=== PATIENT | female | born 1980 | race Caucasian/White ===

== ENCOUNTER 2020-02-12 14:41 | Emergency (ER) | payer OTHER, SELFPAY ==
[2020-02-12 14:55] VITALS: BP 152/75; PULSE 67; RESP 16; TEMP 36.6; O2SAT 100
--- NOTE | 2020-02-12 15:16 | ED.FEMALEGU ---
HPI - Female Genitourinary General Chief complaint: Urogenital-Female Stated complaint: Uti Time Seen by Provider: 02/12/20 15:16 Source: patient and RN notes reviewed Mode of arrival: ambulatory Limitations: no limitations History of Present Illness HPI Narrative: 39-year-old female presents with concern for possible urinary tract infection. Reports 2-day history of urine frequency, urgency, suprapubic pressure, nausea. Reports burning with urination. Reports symptoms started at the onset of menses 3 days ago. She denies fever, flank pain, malaise. MD elicited complaint: UTI Related Data Home Medications Medication Instructions Recorded Confirmed levothyroxine [Synthroid] 200 mcg PO DAILY 02/12/20 02/12/20 meclizine 25 mg PO BID PRN 02/12/20 02/12/20 Allergies Allergy/AdvReac Type Severity Reaction Status Date / Time No Known Allergies Allergy Unknown Verified 02/12/20 15:09 Review of Systems Review of Systems: Narrative: CONSTITUTIONAL: Denies malaise, chills, sweats, or fever. CARDIOVASCULAR: Denies chest pain, palpitations, or edema. RESPIRATORY: Denies dyspnea. GASTROINTESTINAL: Reports suprapubic pressure, nausea. Denies abdominal pain, vomiting, diarrhea, bloody, or mucous stools. GENITOURINARY: Reports dysuria frequency, urgency. Denies hematuria. SKIN: Denies rash or itching. MUSCULOSKELETAL: Denies back pain or myalgia. All systems reviewed & are unremarkable except as noted in HPI and below PMFSH Comments At time of signature, agree with nursing past medical, surgical, social and family history. There is no relevant family history pertinent to the presenting complaint Exam Narrative: Exam Narrative: GENERAL: Well-appearing, well-nourished, and in no acute distress. HEAD: Normocephalic. EYES: PERRLA, conjunctivae clear. NECK: Supple. No lymphadenopathy CHEST: Clear to auscultation. No respiratory distress. HEART: Regular rate and rhythm. No murmur heard. Normal peripheral pulses. ABDOMEN: Soft, nontender upon palpation, nondistended, normal active bowel sounds, no palpable or pulsatile masses, no guarding. No CVA tenderness SKIN: Warm, dry, no rash. NEURO: Alert and oriented x3. PSYCH: Normal mood and affect Course Course Emergency Course: Patient is aware of diagnosis, understands and agrees to treatment plan. Anticipatory guidance given. Patient agrees to follow-up as directed and is aware of reasons to seek care at the emergency department. Portions of this record may have been created with voice recognition software Vital Signs Vital signs: Vital Signs Temperature 98 F 02/12/20 14:55 Pulse Rate 67 02/12/20 14:55 Respiratory Rate 16 02/12/20 14:55 Blood Pressure 152/75 H 02/12/20 14:55 Pulse Oximetry 100 02/12/20 14:55 Temperature 98 F 02/12/20 14:55 Pulse Rate 67 02/12/20 14:55 Respiratory Rate 16 02/12/20 14:55 Blood Pressure 152/75 H 02/12/20 14:55 Pulse Oximetry 100 02/12/20 14:55 Reviewed. Patient has been instructed to follow up with her primary care provider within the next week regarding her elevated blood pressure today. MDM - Female Genitourinary MDM Narrative Medical decision making narrative: Exam findings and UA show no acute concerns or changes; patient is non-toxic appearing and is in no distress. Patient is appropriate for outpatient treatment and follow-up. Differential Diagnosis Differential diagnosis: Likely urinary tract infection and cystitis Lab Data Attestation: I reviewed the patient's lab results. Labs: Urine Glucose Negative Reference Range: Negative Urine Bilirubin Negative Reference Range: Negative Urine Ketone 2+ Reference Range: Negative Urine Specific [employer] 1.015 Reference Range:1.001-1.035 Urine Blood 2+ Reference Range: Negative * * Urine pH
== END 2020-02-12 15:30 | disposition home or self-care (01) ==
PROVIDERS: Emergency Provider Nurse Practitioner; PCP Family Medicine
DX: R35.0 Frequency of micturition (principal); R39.15 Urgency of urination; R30.0 Dysuria
CPT/HCPCS: 81003; 87086; 87088; 99203; G0463

== ENCOUNTER 2022-10-05 15:29 | Outpatient (CLI) | payer BC, SELFPAY ==
--- NOTE | ~2022-10-05 | MM_ITS ---
EXAMINATION: MM screening yifan BI w tavares HISTORY: Screening TECHNIQUE: Craniocaudal and mediolateral oblique 3-D tomosynthesis images were obtained and synthetic 2-D images were generated. CAD analysis was submitted and interpreted. COMPARISON: No prior mammogram is available for comparison at this institution. BREAST PARENCHYMAL COMPOSITION: There are scattered areas of fibroglandular density. FINDINGS: There is a focal asymmetry superiorly in the left breast on MLO view. There are no suspicio us masses, calcifications or architectural distortion in the right breast to suggest malignancy. IMPRESSION: 1. Focal right breast asymmetry superiorly in the left breast on MLO view. 2. Recommend comparison to previous outside mammograms to assess stability. BI-RADS Category 0: Incomplete: Needs additional imaging evaluation. Reviewed, dictated and finalized at location A. GER OF SOFTWARE
== END 2022-10-05 15:30 | disposition home or self-care (01) ==
LOC: ANHIMG 15:32
PROVIDERS: PCP Family Medicine; Visit Provider Family Medicine
DX: Z12.31 Encounter for screening mammogram for malignant neoplasm of breast (principal); R92.8 Other abnormal and inconclusive findings on diagnostic imaging of breast
CPT/HCPCS: 77063; 77067

== ENCOUNTER 2022-10-23 11:12 | Outpatient (CLI) | payer BC, SELFPAY ==
--- NOTE | ~2022-10-23 | MMUS_ITS ---
EXAMINATION: MM diagnostic yifan LT w tavares, US breast LT limited HISTORY: Follow-up left breast mass TECHNIQUE: Additional 3-D tomosynthesis images of the left were performed and synthetic 2-D images we re generated. CAD analysis was submitted and interpreted. High resolution Limited left breast ultraso und was performed. COMPARISON: 10/05/2022 BREAST PARENCHYMAL COMPOSITION: Breast composed of scattered areas of fibroglandular density FINDINGS: MAMMOGRAPHIC FINDINGS: There is a small mass in the lower outer quadrant of the left breast. No suspicious calcifications or architectural distortion. ULTRASOUND: Limited left breast ultrasound: At 8:00, 1 cm from the nipple, there is a 3 mm cyst which corresponds to the mammographic finding. No suspicious masses are identified to suggest malignancy. IMPRESSION: 1. No evidence for malignancy in the left breast. Benign finding. 2. Routine yearly screening mammogram and regular clinical breast examination are recommended. BI-RADS Category 2: Benign finding(s). Reviewed, dictated and finalized at location A. LE EXTRUSION MACHINE OPERATOR IMPRESSION: 1. No evidence for malignancy in the left breast. Benign finding. 2. Routine yearly screening mammogram and regular clinical breast examination a re recommended. BI-RADS Category 2: Benign finding(s).
== END 2022-10-23 11:13 | disposition home or self-care (01) ==
PROVIDERS: PCP Family Medicine; Visit Provider Family Medicine
DX: R92.8 Other abnormal and inconclusive findings on diagnostic imaging of breast (principal)
CPT/HCPCS: 76642; 77061; 77065; G0279

== ENCOUNTER 2023-11-10 18:29 | Emergency (ER) | payer BC, SELFPAY ==
--- NOTE | ~2023-11-10 | CT_ITS ---
EXAMINATION: CT abdomen pelvis w con DATE: 11/10/2023 21:47 INDICATION: epigastric pain TECHNIQUE: Computed tomography (CT) of the abdomen and pelvis was performed with 100 mL Omnipaque-350 intravenous contrast. Automated exposure control and iterative reconstruction technique were employe d. The dose-length product was 871.17 mGy-cm. COMPARISON: 03/22/2012. FINDINGS: Lower thorax: Unremarkable Liver: Normal. Biliary/Gallbladder: Gallbladder is absent. Mild intrahepatic duct dilation. No extrahepatic duct dil ation. Pancreas: No mass or duct dilation. Spleen: Subcentimeter hypodensity, likely cyst or hemangioma. Adrenals:No mass. Kidneys: No suspicious mass, obstructing stone, or hydronephrosis. Punctate right midpole calcificati on. GI tract: No small or large bowel dilation. Normal appendix. Diverticulosis without diverticulitis. Mesentery/Peritoneum: No ascites, mass, or free air. Retroperitoneum: No mass. Mild atherosclerotic abdominal aortic and/or arterial calcifications. Pelvis: Pelvic organs are within normal limits. Soft Tissues: Soft tissues and body wall unremarkable. Bones: No acute osseous finding. IMPRESSION: Mild intrahepatic bile duct dilation, possibly related to prior cholecystectomy, correlate with bilia ry labs. Otherwise no acute abdominopelvic process detected. Reviewed, dictated and finalized at location K. RONMENTAL CONTROL ADMINISTRATOR IMPRESSION: Mild intrahepatic bile duct dilation, possibly related to prior cholecystectomy , correlate with biliary labs. Otherwise no acute abdominopelvic process detected.
[2023-11-10 18:31] VITALS: BP 158/73; PULSE 82; RESP 100; TEMP 36.4; O2SAT 100
[2023-11-10 20:34] LABS: Basophils Percent Auto 0.3 % (0.2-1.2); Eosinophils Absolute Auto 0.1 K/mm3 (0-0.3); Eosinophils Percent Auto 0.7 % (0-4.4); Hematocrit 45.2 % (37.0-47.0); Hemoglobin 14.8 g/dL (12.0-15.0); Immature Granulocyte Absolute 0.02 K/mm3 (0.00-0.031); Immature Granulocyte Percent A 0.2 % (0-0.5); Lymphocytes Absolute Auto 2.26 K/mm3 (0.9-3.2); Lymphocytes Percent Auto 24.6 % (18.3-44.2); Mean Corpuscular HGB Conc 32.7 g/dl (32-36); Mean Corpuscular Hemoglobin 28.1 pg (26-34); Mean Corpuscular Volume 85.8 fl (80-100); Mean Platelet Volume 9.7 fl (7.4-10.4); Monocytes Absolute Auto 0.8 K/mm3 (0.1-0.6); Monocytes Percent Auto 8.8 % (2.6-8.5); Neutrophils Percent Auto 65.4 % (45.5-73.1); Platelet Count Result 407 k/mm3 (150-375); Red Blood Count 5.27 M/mm3 (4.2-5.4); Red Cell Distribution Width 13.3 % (11.5-14.5); White Blood Count 9.2 K/mm3 (4.5-10.0)
[2023-11-10 20:39] VITALS: TEMP 36.7
[2023-11-10 20:44] LABS: Alanine Aminotransferase 31 U/L (6-35); Albumin Level 4.4 g/dL (3.5-5.1); Alkaline Phosphatase 58 U/L (38-126); Anion Gap 6 mmol/L (8-16); Aspartate Amino Transferase 28 U/L (14-36); Blood Urea Nitrogen 12 mg/dL (7-17); Calcium 9.1 mg/dL (8.4-10.2); Carbon Dioxide 28 mmol/L (22-30); Chloride 104 mmol/L (98-107); Estimated CRCL calculation 100 ml/min; Estimated Glomerular Filt Rate > 60; Glucose 104 mg/dL (65-110); Lipase 248 U/L (23-300); Potassium 3.5 mmol/L (3.4-5.0); Sodium 138 mmol/L (137-145)
--- NOTE | 2023-11-10 20:44 | ED.ABDPAIN ---
HPI - Abdominal Pain General Chief Complaint: Abdominal Pain Stated Complaint: Abdomen pain Time Seen by Provider: 11/10/23 20:36 History of Present Illness HPI narrative: 33-year-old female presented to the emergency department for evaluation of epigastric pain. Patient reports symptoms started approximately 4 days ago. Patient did have follow-up with urgent care and was recommended to present to the emergency department for evaluation for possible pancreatitis. Patient denies any prior history pancreatitis. Patient reports in her 20s she did have a heavier drinking history but patient denies any current heavy alcohol consumption. Patient does have prior history of cholecystectomy. Related Data Home Medications Medication Instructions Recorded Confirmed levothyroxine 200 mcg tablet 200 mcg PO DAILY 02/12/20 02/12/20 (Synthroid) meclizine 25 mg tablet 25 mg PO BID PRN Dizziness 02/12/20 02/12/20 Allergies Allergy/AdvReac Type Severity Reaction Status Date / Time No Known Allergies Allergy Unknown Verified 02/12/20 15:09 Review of Systems Review of Systems: All systems reviewed & are unremarkable except as noted in HPI and below Exam Narrative: APPEARANCE: Well appearing, no pain, no distress, well-nourished. HEAD: normocephalic, atraumatic. EYES: PERRLA/EOMI, conjunctivae clear. NOSE: Normal no drainage EARS:TMS clear with good light reflex. THROAT: Pharynx clear, no exudate. NECK: Supple. No adenopathy, no masses. RESPIRATORY: Airway patent, respirations nonlabored. Clear to auscultation bilaterally, no rales, rhonchi, wheezing. CARDIOVASCULAR: Regular rate and rhythm without murmurs rubs or gallops. ABDOMINAL: Epigastric tenderness to palpation MUSCULOSKELETAL: Moves all extremities. Strength/ROM intact, No edema, No calf tenderness. NEURO: Alert. Cranial nerves II through XII intact. Good gait. Good coordination SKIN: Warm, dry. Normal Color PSYCHIATRIC: Normal affect/mood. Course Course Emergency Course: 33-year-old female presents emergency department for evaluation of epigastric pain. Patient was afebrile with no leukocytosis and a normal lipase. CT showed no acute intra-abdominal abnormality. Patient did feel improved with treatment. Patient was encouraged to follow a clear liquid diet, she was provided Zofran for nausea control and encouraged close follow-up with her primary care physician. All questions concerns were addressed patient was well-appearing at time of discharge. Vital Signs Vital signs: Vital Signs Temperature 97.6 F 11/10/23 18:31 Pulse Rate 82 11/10/23 18:31 Respiratory Rate 100 H 11/10/23 18:31 Blood Pressure 158/73 H 11/10/23 18:31 Pulse Oximetry 100 11/10/23 18:31 Oxygen Delivery Room Air 11/10/23 18:31 Temperature 98.0 F 11/10/23 20:39 Pulse Rate 79 11/10/23 23:26 Respiratory Rate 15 11/10/23 23:26 Blood Pressure 117/68 11/10/23 23:26 Pulse Oximetry 100 11/10/23 23:26 Oxygen Delivery Room Air 11/10/23 18:31 MDM - Abdominal Pain Differential Diagnosis Differential diagnosis: Likely abdominal pain, acute appendicitis, calculus of kidney, constipation, diverticulitis, endometriosis, gastroenteritis, pancreatitis and small bowel obstruction Lab Data Attestation: I reviewed the patient's lab results. 11/10/23 20:25 11/10/23 20:25 Labs: Lab Results 11/10/23 11/10/23 Range/Units 20:25 22:13 WBC 9.2 (4.5-10.0) K/mm3 RBC 5.27 (4.2-5.4) M/mm3 Hgb 14.8 (12.0-15.0) g/dL Hct 45.2 (37.0-47.0) % MCV 85.8 (80-100) fl MCH 28.1 (26-34) pg MCHC 32.7 (32-36) g/dl RDW 13.3 (11.5-14.5) % Plt Count 407 H (150-375) k/mm3 MPV 9.7 (7.4-10.4) fl Immature Gran % (Auto) 0.2 (0-0.5) % Neut % (Auto) 65.4 (45.5-73.1) % Lymph % (Auto) 24.6 (18.3-44.2) % [place] % (Auto) 8.8 H (2.6-8.5) % Eos % (Auto) 0.7 (0-4.4) % Baso % (Auto) 0.3 (0.2-1.2) % Lymph
[2023-11-10] MEDS: BELLADONNA ALK/PHENOB ELIX 10 ML, MAG HYDROX/ALUMINUM HYD/SIMETH 30 ML, LIDOCAINE HCL 2... PO (21:20)
[2023-11-10] MEDS: HYDROmorphone HCL INJ (*CRX) 1 MG/ML SYR 0.5 MG IV PUSH (22:12)
[2023-11-10] MEDS: ONDANSETRON INJ 4 MG/2 ML VIAL IV PUSH (22:12)
[2023-11-10 22:23] LABS: Appearance Urine Clear (Clear); Bilirubin Urine Negative (Negative); Blood Urine Negative (Negative); Color Urine Yellow (Yellow); Glucose Urine UA Negative (Negative); Ketones Urine Negative (Negative); Leukocyte Esterase Ur Negative LEU/UL (Negative); Nitrate Urine Negative (Negative); Protein Urine Negative (Negative); pH Urine 6.5 (5.0-9.0)
[2023-11-10 22:34] LABS: Add Urine Microscopic? NO
[2023-11-10] MEDS: PANTOPRAZOLE SODIUM IV 40 MG VIAL IV PUSH (22:43)
[2023-11-10 22:44] VITALS: BP 114/69; PULSE 74; RESP 20; O2SAT 96
[2023-11-10 23:26] VITALS: BP 117/68; PULSE 79; RESP 15; O2SAT 100
== END 2023-11-10 23:33 | disposition home or self-care (01) ==
PROVIDERS: Emergency Provider Emergency Medicine; PCP Family Medicine
DX: R10.13 Epigastric pain (principal); Z90.49 Acquired absence of other specified parts of digestive tract
CPT/HCPCS: 36415; 74177; 80053; 81003; 81025; 83690; 85025; 96374; 96375; 99284; A9270; C9113; J1170; J2405; Q9967

== ENCOUNTER 2023-12-25 15:22 | Outpatient (CLI) | payer BC, SELFPAY ==
--- NOTE | ~2023-12-25 | MM_ITS ---
EXAMINATION: MM screening yifan BI w tavares HISTORY: Screening TECHNIQUE: Craniocaudal and mediolateral oblique 3-D tomosynthesis images were obtained and synthetic 2-D images were generated. CAD analysis was submitted and interpreted. COMPARISON: Comparison to multiple prior studies sequentially, with oldest reviewed study dated 10/05. BREAST PARENCHYMAL COMPOSITION: Not dense: There are scattered areas of fibroglandular density. FINDINGS: Stable benign left breast mass, previously characterized as a cyst. There is no evidence of suspicious mass, calcification, or architectural distortion to suggest malignancy in either breast. There has been no suspicious interval change. IMPRESSION: 1. No mammographic evidence of malignancy. 2. Recommend routine screening mammography in one year. BI-RADS Category 2: Benign finding(s). Reviewed, dictated and finalized at location A.
== END 2023-12-25 15:23 | disposition home or self-care (01) ==
LOC: ANHIMG 15:25
PROVIDERS: PCP Family Medicine; Visit Provider Family Medicine
DX: Z12.31 Encounter for screening mammogram for malignant neoplasm of breast (principal)
CPT/HCPCS: 77063; 77067

== ENCOUNTER 2025-02-04 07:27 | Outpatient (CLI) | payer BC, SELFPAY ==
--- NOTE | ~2025-02-04 | MM_ITS ---
EXAMINATION: MM screening yifan BI w tavares HISTORY: Screening TECHNIQUE: Craniocaudal and mediolateral oblique 3-D tomosynthesis images were obtained and synthetic 2-D images were generated. CAD analysis was submitted and interpreted. COMPARISON: Comparison to multiple prior studies sequentially, with oldest reviewed study dated 10/05. BREAST PARENCHYMAL COMPOSITION: Not dense: There are scattered areas of fibroglandular density. FINDINGS: There is no evidence of suspicious mass, calcification, or architectural distortion to sugg est malignancy in either breast. There has been no suspicious interval change. IMPRESSION: 1. No mammographic evidence of malignancy. 2. Recommend routine screening mammography in one year. BI-RADS Category 1: Negative Reviewed, dictated and finalized at location A.
--- OUTSIDE RECORDS SUMMARY | 2025-02-04 07:32 | XMS_ITS | Clinical Summary ---
Author Organization [facility] Address [address] [place] [address] Care Team Providers Care Fire Inspector Name Role Phone Tawny Garrett RD/LD Primary Care Provider Nikki vailable Source Comments [facility],non-owned Affiliates and Associated Physician Practices is amultiple site organization consisting of ambulatory clinics and hospital sitesin [place], [place], [place] and [place]. This disclosure is being madepursuant to the Care Everywhere program and may not contain all information available regarding this patient. Last updated 18.[facility] Allergies Active Allergy Reactions Criticality Noted Date Comments Levothyroxine Myalgias Low 08/20/2017 Pt states it gives her leg cramps Medications * Be aware that medications may not be up to date on this document. Alwaysverify current medications with the patient. albuterol HFA (PROVENTIL;LYNETTE BOBBY;PROAIR) 108 (90 BASE) MCG/ACT inhalerIndicatio ns:Acute bronchitis, unspecified organism Inhale 2 puffs by mouth every 4 hours as needed for Shortness of Breath 1 Inhaler 7 Active thyroid (ARMOUR THYROID) 120 MG tablet Take 120 mg by mouth once daily Active MECLIZINE HCL PO Act tino Social History Tobacco Use Types Packs/Day Years Used Date Smoking Tobacco: Never Smokeless Tobacco: Never Comments No Sex and Gender Information Value Date Recorded Sex Assigned at Not on file Legal Sex Female 1:13 AM INDUSTRIAL GREEN SYSTEMS DESIGNER Gender Identity Not on file Sexual Orientation Not on file Last Filed Vital Signs Vital Sign Reading Time Taken Comments Blood Pressure 132/80 10/21/2018 9:22 AM INDUSTRIAL GREEN SYSTEMS DESIGNER Pulse 83 10/21/2018 9:22 AM INDUSTRIAL GREEN SYSTEMS DESIGNER Temperature 37.2 C (98.9 F) 10/21/2018 9:22 AM INDUSTRIAL GREEN SYSTEMS DESIGNER Respiratory Rate 16 10/21/2018 9:22 AM INDUSTRIAL GREEN SYSTEMS DESIGNER Oxygen Saturation 98% 10/21/2018 9:22 AM INDUSTRIAL GREEN SYSTEMS DESIGNER Inhaled Oxygen Concentration - - Weight 86.2 kg (190 lb) 10/21/2018 9:22 AM INDUSTRIAL GREEN SYSTEMS DESIGNER Height 160 cm (5' 3 ) 10/21/2018 9:22 AM INDUSTRIAL GREEN SYSTEMS DESIGNER Body Mass Index 33.66 10/21/2018 9:22 AM INDUSTRIAL GREEN SYSTEMS DESIGNER Plan of Treatment Health Maintenance Due Date Last Done Comments LIPID TESTING 1981 MAMMOGRAM 1981 HIV SCREENING 1996 HEPATITIS C SCREENING 06/23/1999 DTAP/TDAP/TD VACCINES (1 - Tdap) 2000 HEPATITIS B VACCINE (1 of 3 - 19+ 3-dose series) 2000 PAP with HPV 2011 COVID-19 VACCINE ( - 2023-2 5 season) 2024 DEPRESSION SCREENING 09/23/2024 INFLUENZA VACCINE (Season Ended) 2025 08/20/20 17 ZOSTER VACCINE (1 of 2) 2031 HIB VACCINE Aged Out No longer eligi ble based on patient's age to complete this topic HPV VACCINE Aged Out No longer eligi ble based on patient's age to complete this topic MENINGOCOCCAL (Group B) VACC INE SHARED DECISION-MAKING Aged Out No longer eligibl e based on patient's age to complete this topic MENINGOCOCCAL GROUPS A/C/Y/W VACCINE Aged Out No longer eligible b ased on patient's age to complete this topic PNEUMOCOCCAL VACCINE Aged Out No long er eligible based on patient's age to complete this topic Insurance [facility] Care Teams Fire Inspector Relationship Specialty Start Date End Date Tawny Garrett RD/ETHAN PCP - General 07/30/17
--- OUTSIDE RECORDS SUMMARY | 2025-02-04 07:33 | XMS_ITS | Clinical Summary ---
Author Organization [facility] Care Team Providers Care Power Tong Operator Name Role Phone Unavailable Primary Care Provider Unavailabl e Social History Tobacco Use Types Packs/Day Years Used Date Smoking Tobacco: Never Assessed Comments Unknown Sex and Gender Information Value Date Recorded Sex Assigned at Not on file Legal Sex Female 11:10 PM CDT Gender Identity Not on file Sexual Orientation Not on file Plan of Treatment Not on file
--- OUTSIDE RECORDS SUMMARY | 2025-02-04 07:33 | XMS_ITS | Referral Summary ---
Author Organization [facility] Address [address] [place] [address] Care Team Providers Care Head Cashier Name Role Phone Nicol Brice NP Unavailable [phone] Nicol Brice NP Primary Care Provider [phone] Allergies No known active allergies Medications levothyroxine (SYNTHROID) 175 mcg tablet Take 1 tablet (175 mcg total) by mouth hedis nurse before breakfast 90 tablet 1 4 Active lisinopriL (PRINIVIL,ZESTR IL) 10 mg tablet Take 1 tablet (10 mg total) by mouth daily 90 tablet 1 4 03/20/20 25 Active albuterol HFA (PROVENTIL HFA,VENTOLIN HFA,PROAIR HFA) 90 mcg/actuation inhaler Inhale 2 puffs every 4 (four) hours as needed for wheezing 1 each 1 5 Active Active Problems Problem Noted Date Diagnosed Date Encounter for routine adult physical exam with abnormal findings 09/20/2024 Assessment & Plan (09/21/2024 7:19 AM MANAGER GENERATION): -Recommended: Healthy diet. Avoiding junk food/fast food. -30 minutes of exercise most days of the week. Increase to 45 minutes for weight loss. Health Maintenance reviewed - recommend tdap, pneumovax 20. -Influenza vaccine every year Recommend: - Topic Date Due Pneumococcal vaccine <65 (1 of 2 - PCV) Never done DTaP/Tdap/Td Vaccine (1 - Tdap) Never done Varicella Vaccines (1 of 2 - 13+ 2-dose series) Never done -F/u in 1 year for Annual PE or sooner if needed Glaucoma suspect of both eyes 06/26/2024 Assessment & Plan (06/26/2024 12:59 PM CDT): Normal intraocular pressure (IOP) both eyes (OU) Slightly thin cct OD, normal left eye (OS) RNFL thinning that corresponds with IAS on Teixeira visual field (HVF) OD- pt is aware of vf defect Full Teixeira visual field (HVF) left eye (OS), normal rnfl No family history of glaucoma, no ho steroid usage or trauca ?? Low tension glaucoma Refer to Glaucoma service for eval Primary hypertension 05/29/2024 Assessment & Plan (09/21/2024 7:17 AM MANAGER GENERATION): Stable/ Improved. Blood pressure is adequately controlled on lisinopril (Prinivil) . We will not make any medication changes today. Will have her follow-up in 6 months for continued monitoring and management Assessment & Plan (06/01/2024 6:16 PM CDT): Hypertension is worsening. Dietary sodium restriction. Weight loss. Medication changes per orders. Continue monitoring at home Blood pressure will be reassessed 2 months . Start lisinopril 10 mg once daily ECG 12 lead Date/Time: 06/01/2024 6:15 PM Performed by: Nicol Brice NP Authorized by: Nicol Brice NP Comparison: not compared with previous ECG Rhythm: sinus rhythm Rate: normal QRS axis: normal Conduction: conduction normal ST Segments: ST segments normal T Waves: T waves normal Other: no other findings Clinical impression: normal ECG Visual field scotoma of right eye 05/21/2024 Assessment & Plan (05/21/2024 11:50 AM CDT): ? Poss enlarged blind spot? Pt has also had borderline HTN , will fu with pcp soon for this Normal ocular exam today FU for optic nerve (ON) oct , Teixeira visual field (HVF) and Gcc 1 month Keratoconus of both eyes 05/21/2024 Assessment & Plan (06/26/2024 3:20 PM CDT): Previously diagnosed by outside physician Normal Pach, central steeping on donna Assessment & Plan (05/21/2024 11:50 AM CDT): Fu for donna next visit Class 3 severe obesity due t o excess calories with serious comorbidity and body mass index (BMI) of 40.0 to 44.9 in adult 02/04/2024 Assessment & Plan (09/21/2024 7:23 AM MANAGER GENERATION): Continues exercising. Diet changes. Assessment & Plan (05/29/2024 9:18 AM CDT): BMI Follow-up includes: exercise counseling and education provided. Assessment & Plan (02/04/2024 10:22 AM CDT): BMI Follow-up includes: exercise counseling. Patient exercises on a regular basis and goes to the gym. Goiter 05/01/2022 Asthma 12/02/2017 Assessment & Plan (02/04/2024 10:13 AM CDT): Intermittent. Uses albuterol prn. Acquired hypothyroidism 08/20/2017 Assessment & Plan (09/21/2024 7:17 AM MANAGER GENERATION): Euthyroid. Last checked in May. Will give orders for repeat labs today. Continue on levothyroxine 175mcg. Assessment & Plan (05/29/2024 9:18 AM CDT): Euthyroid. Continue levothyroxine 175 mcg once daily. Assessment & Plan (02/04/2024 10:12 AM CDT): Check TSH today. Continue current medication. . Please take levothyroxine on an empty stomach. This means 1 hour before eating or 2 hours after eating. Food in the stomach will interfere with absorption of the levothyroxine. Calcium, antacids and iron supplements will also interfere with the absorption of levothyroxine. Please take these at a different time of the day Assessment & Plan (08/20/2017 2:48 PM MANAGER GENERATION): Labs ordered. Awaiting results before re-starting the amour thyroid. Resolved Problems Problem Noted Date Diagnosed Date Resolved Date Encounter to establish care 02/04/2024 09/21/2024 Assessment & Plan (02/04/2024 10:23 AM CDT): Reviewed past medical surgical and family history and ordered labs. Will have her follow-up in 6 months for annual physical. She recently had mammogram done in [facility]. 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 Medication may be considered as her blood pressure today was 142/90. Handouts given on normal blood pressure from target BP Hip pain 05/01/2022 02/04/2024 Chest wall pain 05/01/2022 02/04/2024 Anxiety 05/01/2022 02/04/2024 Bronchitis 05/01/2022 02/04/2024 Fracture of tibia and fibula 04/14/2022 02/04/2024 Left axillary pain 08/20/2017 Neuropathy of left upper extremity 08/20/2017 02/04/2024 Assessment & Plan (08/20/2017 2:47 PM MANAGER GENERATION): Will refer to neurologist for further eval/treatment. Cubital tunnel syndrome 08/20/201101/21 Immunizations Immunization Administration Dates Next Due Influenza, Quadrivalent, Spl it, Intramuscular 10/06/2019,07/10/2018 Influenza, Quadrivalent, Spl it, Preservative Free, Intramuscular 05/24/2020,07/11/2018,08/20/2017 Influenza, Trivalent, IM (MDV) 06/01/2021 Influenza, Unspecified 06/14/2024,2023(Deferred: Patient Refused),09/23/2023(Deferred: Patient Refused),09/23/2022(Deferred: Patient Refused) Pneumococcal Conjugate Pcv20 09/21/2024 Social History Tobacco Use Types Packs/Day Years Used Date Smoking Tobacco: Never Cigarettes Smokeless Tobacco: Never Tobacco Cessation:Counseling Given: Not Answered Alcohol Use Standard Drinks/Week Comments No 0 (1 standard drink = 0.6 oz pur e alcohol) AUDIT-C Answer Date Recorded Q1: How often do you have a drink containing alcohol? Never 09/21/2024 Q2: How many drinks containi ng alcohol do you have on a typical day when you are drinking? Patient does not drink Q3: How often do you have si x or more drinks on one occasion? Never 09/21/2024 PHQ-2 Answer Date Recorded PHQ-2 Total Score (If total score is 3 or more points, staff should administer the PHQ-9) 0 05/29/2024 Comments No Sex and Gender Information Value Date Recorded Sex Assigned at Not on file Legal Sex Female 12:47 AM MANAGER GENERATION Gender Identity Female 07/17/2022 10:43 AM CDT Sexual Orientation Straight 07/17/2022 10 :43 AM CDT Last Filed Vital Signs Vital Sign Reading Time Taken Comments Blood Pressure 134/86 09/21/2024 7:00 AM MANAGER GENERATION Pulse 101 09/21/2024 7:00 AM MANAGER GENERATION Temperature 36.8 C (98.3 F) 09/21/2024 7:00 AM MANAGER GENERATION Respiratory Rate 16 09/21/2024 7:00 AM MANAGER GENERATION Oxygen Saturation 97% 09/21/2024 7:00 AM MANAGER GENERATION Inhaled Oxygen Concentration - - Weight 103.9 kg (229 lb 1.6 oz) 09/21/2024 7:00 AM MANAGER GENERATION Height 160 cm (5' 3 ) 09/21/2024 7:00 AM MANAGER GENERATION Body Mass Index 40.58 09/21/2024 7:00 AM MANAGER GENERATION Plan of Treatment Not on file Medical Devices Implanted Type Area Development Vice President Device Identifier Shelf Expiration Date Model / Serial / Lot [employer]hew/Rich[employer]/Ort ho [place]-Nail 10mm 33cm Tibia Nail Intramedullary Titanium [id number] - S0 - [id number] Implanted:Qty: 1 on 04/14/2022 by Lucinda Osborne MD at [facility] Nail Right: Tibia [employer]/Rich[employer]/O rtho [id number] 11/09/2030 [id number] / 0 / [id number] [employer]/Rich[employer]/Ort ho Dup 5mm 32.5mm Low Profile Internal Hex Femur Screw Bone Trigen [id number] - S0 - [id number] Implanted:Qty: 2 on 04/14/2022 by Lucinda Osborne MD at [facility] Screw Right: Tibia SILVA [employer] NE[employer]HEW/RICH[employer]/O RTHO Dup [id number] / 0 / 0 [employer]/Rich[employer]/Ort ho 5mm 35mm Low Profile Internal Hex Femur Screw Bone Trigen [id number] - S0 - [id number] Implanted:Qty: 1 on 04/14/2022 by Lucinda Osborne MD at [facility] Screw Right: Tibia [employer]/Rich[employer]/O rtho [id number] / 0 / 0 [employer]/Rich[employer]/Ort ho 5mm 37.5mm Low Profile Internal Hex Femur Screw Bone Trigen [id number] - S0 - [id number] Implanted:Qty: 1 on 04/14/2022 by Lucinda Osborne MD at [facility] Screw Right: Tibia [employer]/O rtho [id number] / 0 / 0 [employer]/Rich[employer]/Ort ho Evos 3.5mm 38mm Self Tap Cortex Screw Bone Sterile [id number] - S0 - [id number] Implanted:Qty: 1 on 04/14/2022 by Lucinda Osborne MD at [facility] Screw Right: Tibia [employer]/O rtho [id number] / 0 / 0 [employer]/Rich[employer]/Ort ho 5mm 57mm Low Profile Internal Hex Femur Screw Bone Trigen [id number] - S0 - [id number] Implanted:Qty: 1 on 04/14/2022 by Lucinda Osborne MD at [facility] Screw Right: Tibia [employer]Rich[employer]/O rtho [id number] / 0 / 0 Procedures Procedure Name Priority Date/Time Associated Diagnosis Comments SCREENING MAMMOGRAM 2D BILATERAL Schedule Routine, Read Routine (OP Routine) 12/25/2023 from Last 3 Months or Most Recently Relevant to Health Maintenance Results * Screening Mammogram 2D Bilateral (12/25/2023) Anatomical Region Laterality Modality Breast Bilateral Mammography us Historical Provider MD [facility] MAMMO PROCEDURES Vero l Result from Last 3 Months or Most Recently Relevant to Health Maintenance Insurance [facility] PPO [facility] CHOICE PLUS [employer] [place] [employer] [place] Advance Directives For more information, please contact: [phone] * Full Code (Latest Code Status on File) Date Activated Date Inactivated Comments 04/14/2022 12:30 PM 04/15/2022 4:55 PM Care Teams Head Cashier Relationship Specialty Start Date End Date Nicol Brice NP PCP - General Family Medicine 05/07/24 Nicol Brice NP Family Medicine 04/07/24
--- OUTSIDE RECORDS SUMMARY | 2025-02-04 07:33 | XMS_ITS | Encounter Summary ---
Author Organization [facility] [place] [facility] Address [address] [place] [address] Phone Care Team Providers Care In Tube Conversion Technician Name Role Phone Perla Palmer DO Primary Care Provider [phone] Klever Walton MD Primary Care Provider Nicol Brice NP Primary Care Provider [phone] No, Physician Primary Care Provider [phone] Nicol Brice METAPHYSICS TEACHER Unavailable Nicol Brice NP Primary Care Provider [phone] Encounter Details Date Type Department Care Team (Late st Contact Info) Description 12/23/2017 Orders Only [facility] Care ProviderEstela MD [address] [place] [id number] Social History Tobacco Use Types Packs/Day Years Used Date Smoking Tobacco: Never Smokeless Tobacco: Never Alcohol Use Standard Drinks/Week Comments No 0 (1 standard drink = 0.6 oz pur e alcohol) Comments No Sex and Gender Information Value Date Recorded Sex Assigned at Not on file Legal Sex Female 12:47 AM CHEMISTRY SPECIALIST Gender Identity Female 07/17/2022 10:43 AM CDT Sexual Orientation Straight 07/17/2022 10 :43 AM CDT documented as of this encounter Plan of Treatment Not on file documented as of this encounter Procedures Procedure Name Priority Date/Time Associated Diagnosis Comments DISCHARGE LABORATORY CUMULATIVE REPORT 12/23/2017 12:00 AM CDT documented in this encounter Results * DISCHARGE LABORATORY CUMULATIVE REPORT (12/23/2017 12:00 AM CDT) Narrative 12/23/2017 12:00 AM CDT Ordered by an unspecified provider. us Historical Provider LAB BLOOD ORDERABLES Vero l Result documented in this encounter Visit Diagnoses Not on filedocumented in this encounter Additional Health Concerns Infection Onset Date Last Indicated Resolved Time COVID19 04/13/2022 04/13/2022 04/25/2022 3:05 AM CDT COVID: Recovered Comment:Added based on recent COVID infection. 04/25/2022 04/27/2022 08/23/2022 3:[address] documented as of this encounter Care Teams In Tube Conversion Technician Relationship Specialty Start Date End Date Perla Palmer DO PCP - General Family Medicine 07/09/17 04/12/22 Klever Walton MD [address] [place] [address] ERIN [place] JESUS [id number] PCP - General Internal Medicine 04/13/22 02/03/24 Nicol Brice NP [address] [place] [address] [place] JESUS [id number] PCP - General Family Medicine 02/04/24 04/06/24 No, Physician PCP - General 04/07/24 05/06/24 Nicol Brice NP [address] [place] [address] ERIN [place] JESUS [id number] PCP - General Family Medicine 05/07/24 Nicol Brice NP [address] [place] [address] [place] [address] Family Medicine 04/07/24 documented as of this encounter
--- OUTSIDE RECORDS SUMMARY | 2025-02-04 07:33 | XMS_ITS | Data Portability ---
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 Patient will come back in a year unless there are new symptoms. Not available 01/23/2023 10:05:24 05/07/2024 05/07/2024 Annual gynecological exam performed. Patient will come back in a year unless there are new symptoms. [email or web address] Not available 05/07/2024 10:10:19 Plan of Treatment Reminders Order Date Submit Date Provider Last Modified By Organization Details Last Modified Time Details Appointments None recorded. Lab hormone panel, serum or plasma 2024 025 [facility] (Lab), [address] [place], [address], 10:25:45 Referral None recorded. Procedures None recorded. Surgeries None recorded. Imaging US, pelvis 2024 025 [email or web address], [address], [place], [address], 23:03:15 US, transvagina l 2024 025 [email or web address], [address], [place], [address], 23:03:15 Medication Orders Nextstellis 3 mg-14.2 mg (28) tablet 2024 025 [email or web address] [id number] [facility] #[id number], [address], [place], [address], 23:32:18 Patient TargetsNo targets recorded. Patient InstructionsNo instructions recorded. Reason for Referral None Reported. 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 Sarkis martinez d by Abdi Casanova ed, CT on 023 at 10:46 PM ----- ----- ----- ----- ----- ----- ----- ----- ----- ----- ----- ----- ----- ----- ----- ----- ----- ---- HPV RESUL TS: HPV mRNA E6/E7 : No HPV mRNA Detec jerad NOTE: This high risk HPV mRNA assay detec ts fourt een high- risk HPV types (16, 18, 31, 33, 35, 39, 45, 51, 52, 56, 58, 59, 66, 68) witho ut diffe renti ation . COMME NT: This speci men was revie wed by a Cytot echno logis t and/o r Patho logis t (as indic ated in this repor t) after evalu ation using the Thinp rep Imagi ng Syste m. CLINI ANTHONY INFOR MATIO N: Menst rual Statu s: LMP (if appli cable ): Clini anthony Histo ry/Pr eviou s Pap: Type of Neopl arik (if appli cable ): Signi fican t Clini anthony Findi ngs: Other Histo ry: Hormo hector (if appli cable ): PAP EDUCA YESENIA L NOTE: The Pap Test is a scree danny test with an inher ent false negat tino rate. Liqui d-bas ed sampl ing may decre ase, but will not elimi haseeb, false negat tino resul ts. A negat tino resul t does not precl ude the prese nce and/o r devel opmen t of disea se, since the prese nce of abnor mal cells in the sampl e depen ds on the locat ion of the lesio n and sampl ing techn ique. Tj nued regul ar scree danny is the best metho d of cance r preve ntion . If repor jerad cytol ogic findi ng do not corre late with physi anthony and/o r histo rical findi ngs, furth er inves tigat ion is recom ron d, as clini zaynab murphy nted. Not Available [facility] (Lab) [address], [place], [address], 01/25/2023 23:49:04 10/21/19 25 10/21/2024 FSH, LH, ESTRA DIOL estradiol 37.3 pg/mL This assay was perfo rmed using [employer] ratio n reage nts and test kits. Value s obtai shannon with other assay metho ds or kits canno t be used inter dykes eably . Femal e Estra diol Range s: Folli cular phase 12.4- 233 pg/mL Ovula tion phase 41.0- 398 pg/mL Lutea l phase 22.3- 341 pg/mL Postm enopa usal <5-13 8 pg/mL Healt hy Pregn ant Women 1st Trime ster 154-3 243 pg/mL 2nd Trime ster 1561- 93891 pg/mL 3rd Trime ster 8525- >3000 0 pg/mL Not Available [facility] (Lab) [address] [place], [address], 10/22/2024 10:25:44 10/21/19 25 10/21/2024 FSH, LH, ESTRA DIOL FSH 9.0 mIU/m L This assay was perfo rmed using [employer] reage nts and test kits. Value s obtai shannon with other assay metho ds or kits canno t be used inter dykes eably . Femal es Folli cular : 3.5-1 2.5 mIU/m L Ovula tion: 4.7-2 1.5 mIU/m L Lutea l: 1.7-7 .7 mIU/m L Postm enopa use: 25.8- 134.8 mIU/m L Not Available [facility] (Lab) [address] [place], [address], 10/22/2024 10:25:44 10/21/19 25 10/21/2024 FSH, LH, ESTRA DIOL LH 8.8 mIU/m L This assay was perfo rmed using [employer] reage nts and test kits. Value s obtai shannon with other assay metho ds or kits canno t be used inter dykes eably . Femal es Mid-F ollic ular: 2.4-1 2.6 mIU/m L Mid-C ycle: 14.0- 95.6 mIU/m L Mid-L uteal : 1.0-1 1.4 mIU/m L Postm enopa use: 7.7-5 8.5 mIU/m L Not Available [facility] (Lab) [address] [place], [address], 10/22/2024 10:25:44 10/27/19 25 10/27/2024 US, pelvi s No observ ation record ed. [email or web address] [place] [address], [place], [address], 10/27/2024 18:11:26 10/27/19 25 10/27/2024 US, trans vagin al No observ ation record ed. [email or web address] [place] [address], [place], [address], 10/27/2024 18:11:35 10/27/19 25 10/27/2024 US, pelvi s No observ ation record ed. [email or web address] [facility] [address], [place], [address], 10/27/2024 22:05:45 Result Notes None recorded. Procedures Surgical History Date Name Laterality Status Provider Name and Address Organization Details Recorded Time 023 Date of Last Pap Smear completed Pamela Oliver [facility] 10/21/2024 16:51:13 023 Date of Last Mammogram completed Cecile Freeman [facility] 01/23/2023 10:06:04 022 Orthopedic Surgery completed Cecile Freeman [facility] 01/23/2023 10:06:16 020 Other completed Pura Buenrostro [facility] [address], [place], [address], [facility] 01/23/2023 10:15:51 011 Cholecystectomy completed Cecile Freeman [facility] 01/23/2023 10:09:46 Imaging Results Imaging Date Name Status LastModified by Organization Details LastModified Time 10/27/2024 US, pelvis completed [email or web address] [place] [address], [place], [address], 10/27/2024 18:11:26 10/27/2024 US[facility]inal [email or web address] [address], [place], [address], 10/27/2024 18:11:35 10/27/2024 US, pelvis completed [email or web address] [facility] [address], [place], [address], 10/27/2024 22:05:45 Procedure Notes None recorded. Medical Equipment None Reported. Allergies No known drug allergies Medications Name Sig Start Date Stop Date Status Note LastModified by Organization Details LastModified Time amoxicillin 500 mg capsule TAKE 1 CAPSULE BY MOUTH TWICE A DAY 01/23 completed Not Available Not Available Not Available levothyroxi ne 175 mcg tablet TAKE 1 TABLET BY MOUTH LOG TURNER BEFORE BREAKFAST active Not Available Not Available No t Available promethazin e-DM 6.25 mg-15 mg/5 mL oral syrup TAKE 5 ML BY MOUTH EVERY 4 HOURS NEEDED FOR 10 DAYS 05/07 completed Not Available Not Available Not Available albuterol sulfate 2.5 mg/3 mL (0.083 %) solution for nebulizatio n INHALE 3 ML VIA NEBULIZER 3 TIMES A DAY FOR 10 DAYS 10/21 completed Not Available Not Available Not Available benzonatate 200 mg capsule TAKE 1 CAPSULE BY MOUTH THREE TIMES A DAY NEEDED WITH 1-2 GLASSES OF WATER 05/07 completed Not Available Not Available Not Available prednisone 20 mg tablet TAKE 2 TABLETS BY MOUTH EVERY DAY FOR 5 DAYS 05/07 completed Not Available Not Available Not Available amoxicillin 500 mg tablet TAKE 1 TABLET BY MOUTH 3 TIMES A DAY UNTIL GONE 10/21 completed Not Available Not Available Not Available levothyroxi ne 25 mcg tablet TAKE 1 TABLET BY MOUTH EVERY DAY 02/27 completed Not Available Not Available Not Available Medi-Mecliz ine 25 mg tablet 05/07 completed Not Available Not Available Not Available amoxicillin 875 mg tablet TAKE 1 TABLET BY MOUTH TWICE DAILY UNTIL ALL GONE 10/21 completed Not Available Not Available Not Available lisinopril 10 mg tablet TAKE 1 TABLET BY MOUTH EVERY DAY active Not Available Not Available No t Available levothyroxi ne 200 mcg tablet TAKE 1 TABLET BY MOUTH EVERY DAY 02/27 completed Not Available Not Available Not Available methylpredn isolone 4 mg tablets in a dose pack FOLLOW PACKAGE DIRECTION S 11/04 completed Not Available Not Available Not Available albuterol sulfate HFA 90 mcg/actuati on aerosol inhaler INHALE 2 PUFFS BY MOUTH EVERY 8 HOURS NEEDED active Not Available Not Available No t Available ondansetron 4 mg disintegrat ing tablet DISSOLVE 1 TABLET ON TONGUE EVERY 8 HOURS NEEDED FOR NAUSEA AND VOMITING 05/07 completed Not Available Not Available Not Available amoxicillin 875 mg-potassiu m clavulanate 125 mg tablet TAKE 1 TABLET BY MOUTH TWICE A DAY FOR 10 DAYS 05/07 completed Not Available Not Available Not Available Eliquis 5 mg tablet TAKE 1 TABLET BY MOUTH TWICE A DAY 01/23 completed Not Available Not Available Not Available Eliquis DVT-PE Treatment 30-Day Starter 5 mg (74 tablets) in dose pack PLEASE SEE ATTACHED FOR DETAILED DIRECTION S 01/23 completed Not Available Not Available Not Available ID NOW COVID-19 Test Kit TEST DIRECTED TODAY 01/23 completed Not Available Not Available Not Available Nextstellis 3 mg-14.2 mg (28) tablet Take 1 tablet every day by oral route. 2024 active Not Available Not Available Not Avai lable Vitals Date Recorded Body height Body mass index (BMI) Body weight Provider Name and Address Organization Details Last Updated DateTime 01/23/2023 162.56 cm 36.4 kg/m2 37904.58 g Cecile Freeman [facility] 01/23/2023 10:05:43 Date Recorded Systolic blood pressure Diastolic blood pressure Provider Name and Address Organization Details Last Updated DateTime 01/23/2023 122 mm[Hg] 80 mm[Hg] Pura Buenrostro [facility] [address], [place], [address], [facility] 01/23/2023 10:13:03 Date Recorded Body height Body mass index (BMI) Body weight Systolic blood pressure Diastolic blood pressure Provider Name and Address Organization Details Last Updated DateTime 05/07/2024 162.56 cm 38 kg/m2 699094.3 5 g 151 mm[Hg] 97 mm[Hg] Jayda Steendena [facility] 4 10:10:40 Date Recorded Body height Body mass index (BMI) Body weight Systolic blood pressure Diastolic blood pressure Provider Name and Address Organization Details Last Updated DateTime 10/21/2024 162.56 cm 38.6 kg/m2 807803.2 8 g 149 mm[Hg] 86 mm[Hg] Pamela Oliver [facility] 5 16:50:42 Date Recorded Body height Body mass index (BMI) Body weight Systolic blood pressure Diastolic blood pressure Provider Name and Address Organization Details Last Updated DateTime 11/04/2024 162.56 cm 38.3 kg/m2 554467.1 g 134 mm[Hg] 88 mm[Hg] Cecile Freeman [facility] 5 09:51:51 Social History Question Answer Notes LastModified by Organizat ion Details LastModified Time Tobacco Smoking Status Never Smoker Cecile Pete [facility], [facility] 01/23/2023 10:09:36 Do You Have An Advance Directive? Yes Information n ot available 11/04/2024 Are You Blind Or Do You Have Difficulty Seeing? No Information n ot available 01/23/2023 What Is Your Level Of Caffeine Consumption? Occasional Information not available 01/23/2023 How Much Tobacco Do You Chew? None Information not available 01/23/2023 In The 14 Days Before Symptom Onset, Have You Had Close Contact With A Laboratory-confirm ed COVID-19 While That Case Was Ill? No Information n ot available 01/23/2023 In The 14 Days Before Symptom Onset, Have You Had Close Contact With A Person Who Is Under Investigation For COVID-19 While That Person Was Ill? No Information not available 01/23/2023 Have You Been To An Area Known To Be High Risk For COVID-19? No Information not available 01/23/2023 Are You Deaf Or Do You Have Serious Difficulty Hearing? No Information not available 01/23/2023 What Type Of Diet Are You Following? SPECIFIC Information n ot available 01/23/2023 What Is The Highest Grade Or Level Of School You Have Completed Or The Highest Degree You Have Received? [id number] Information not available 01/23/2023 Are There Any Guns Present In Your Home? No Information not available 01/23/2023 Do You Use Protection During Sex? No Information not available 01/23/2023 Do You Use Your Seat Belt Or Car Seat Routinely? Yes Information not available 01/23/2023 Do You Have Smoke And Carbon Monoxide Detectors In Your Home? Yes Information not available 01/23/2023 How Much Tobacco Do You Smoke? No Information not available 01/23/2023 Do You Use Sunscreen Routinely? Yes Information not available 01/23/2023 Have You Used IV Drugs? No Information not available 01/23/2023 Sex: Female Functional Status Question Answer Note LastModified by Organizat ion Details LastModified Time Do you use any illicit or recreational drugs? No Information not available 01/23/2023 What is your level of alcohol consumption? None Information not available 01/23/2023 Are you able to walk? 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 Moderate Information not available 01/23/2023 Mental Status Question Answer Note LastModified by Organization D etails LastModified Time Do you feel stressed (tense, restless, nervous, or anxious, or unable to sleep at night)? [id number] Information not available 01/23/2023 Family History Relationship Description Onset Age of this Age Resolved Age Notes LastModified by Organization Details LastModified Time Paternal Grandmother Disorder of thyroid gland Not available 2022 10:05:54 Paternal Grandmother Depressive disorder Not available 2022 10:05:54 Paternal Grandmother Osteoporosis Not available 0 01/23/2023 10:05:54 Paternal Grandmother Anxiety disorder [email or web address] Not available 2024 16:46:34 Paternal Grandmother Hypertensive disorder [email or web address] Not available 2024 16:46:34 Father Disorder of nervous system Not available 2022 10:05:54 Father Hypercholest erolemia Not available 2022 10:05:54 Father Hypertensive disorder Not available 2022 10:05:54 Medical History Condition Response Allergies (Food, seasonal, environmental ) N Other N Breast Cancer N Drug/Latex Allergies/Reactions N Blood Transfusion N Dermatologic Disorders N Lung Disease N Defects or Inherited Disease N Breast Problem Y Gestational Diabetes N Hematologic disorders N Anesthesia Complications N History of STI N Deep Vein Thrombosis N Polycystic ovary syndrome N Anxiety Disorder N Autoimmune disease N Arthritis N Infertility N Polyps N Acid Reflux (GERD) N History of abnormal pap N Cancer N Stroke N Varicosities N Neurologic/Epilepsy Y Endometriosis N High Cholesterol N Headaches N Fibromyalgia N Kidney Disease N Heart Problems N Kidney or Bladder Problems N Thyroid Problems Y GI Problems N Eating Disorder N Anemia N Art (IVF or FET) N Psychiatric Illness N Ovarian Cancer N Diabetes N Pulmonary (TB, Asthma) N Hepatitis/Liver Disease N No Past Medical History N Eczema N Urinary Tract Infection N Abuse/Domestic Violence N Asthma Y Trauma/Violence N Depression/ depression N Heart Disease N Pre-Eclampsia N Hypertension N Osteoporosis N Thrombophilias N Gynecological History Statement/Question Response Date of Last Mammogram 11/22/2022 Flow Light Date of LMP 10/10/2024 N Was last menstrual period normal N STIs/STDs N None Desired Control Method None Abnormal Pap N On BCP's at Conception? N HPV Vaccine N Duration of Flow (days) 7 Current Control Method None Age at First Child 28 Are cycles usually normal N Frequency of Cycle (Q days) 29 Sexually Active? Y Menses Monthly Y Age of first menstrual cycle 10 Date of Last Pap Smear 01/23/2023 Sexual Problems? N LMP Definite N Obstetrics History GPAL:G 4 P 1 0 3 1 Type Value Full Term 1 Induced 1 Spontaneous 2 Living 1 Total 4 Past Encounters Encounter ID Performer Location Encounter Start Date Encounter Closed Date Diagnosis/Indication Diagnosis SNOMED-CT Code Diagnosis ICD10 Code Diagnosis Note [id number] Pura Buenrostro [facility] [address] [address] 01/23/2023 09:53:39 01/23/2023 10:26:24 Gynecologic examination 58175732 Z01.419 Suggested Calcium with Vitamin D 1200-1500m g daily. Patient advised to get an annual flu shot in the fall and she could obtain at [facility] or [facility]. Also to obtain TDap vaccinatio n if you have not had one in the last 10 years. Recommend yearly mammograms . Encouraged monthly self breast exams. Encourage safe sexual practices, to use condoms and limit partners if not already in a monogamous relationsh ip. Engage in daily exercise of low impact aerobic exercise 45-60 minutes 4-5 times weekly. Avoid tobacco and illicit drugs as well as using moderation with alcohol intake less than 1-2 8 oz beverages daily. This lifestyle behavior pattern will lead to less health conditions and longer life span. If BMI greater than 25 weight watchers or dietary consult advised. All questions have been answered. Patient appears to understand informatio n, but if you have any questions please call or respond to this email. Pap/hpv-se nt STD Screen declined Genetic Screen discussed Colon Screen na Dexa Screen na Routine Labs PCPMammo-U TD PCP [id number] AMADOU RENEE MD [place] [address] [address] 05/07/2024 09:54:19 05/07/2024 11:15:57 Gynecologic examination 32747860 Z01.419 [facility]- Cervical cancer screening: Pap smear not indicated (next 01/2028)- Breast cancer screening: mammogram completed 12/2023; patient to have PCP send results- Colon cancer screening: does not qualify- HPV immunizati on: declined- STD testing: declined- hereditary cancer screening: does not qualify for testing [id number] AMADOU RENEE MD [place] [address] [address] 10/21/2024 16:40:38 10/22/2024 10:32:06 Perimenopausal disorder 684730154 N95.9 Abnormal weight gain 161 424315 R63.5 - patient reports continued weight gain despite adherence to good diet and exercise- outside labs (CBC, CMP, A1c, TSH, lipid panel) reviewed today; overall normal aside from elevated cholestero l which patient is working with PCP on- discussed change in metabolism in 40s, many women experienci ng difficulty losing weight- Encouraged strength training and increasing protein intake; discussed multifacto ral cause of weight gain- may be related to perimenopa use but hard to evaluate; will order labs as above- discussed trial of MHT though not well studied vs weight loss medication s which patient is hesitant to try Menorrhagia 899432308 N9 2.0 - periods now lasting 2 weeks every month; previously monthly with 4-5 days of bleeding- pelvic US and labs ordered to r/o structural cause- discussed likely perimenopa usal changes of bleeding if other workup normal; will follow up after ultrasound to discuss results and further management options. [id number] Tomi Chen MD [place] [address] [address] 10/27/2024 17:09:04 10/27/2024 18:11:54 Menorrhagia 074638297 N92.0 [id number] AMADOU RENEE MD [place] [address] [address] 11/04/2024 09:45:03 11/05/2024 09:39:15 Menorrhagia 452935207 N92.0 - periods now lasting 2 weeks every month; previously monthly with 4-5 days of bleeding- labs wnl; pelvic US overall wnl, no obvious structural causes- discussed likely perimenopa usal changes of bleeding; discussed expectant vs medical vs surgical management - patient desires medical management with OCPs at this time; Samples of nextstelli s given Health Concerns Section Related Observation LastModified by Organization Detai ls LastModified Time None Recorded Concern Status LastModified by Organization Details LastModified Time None Recorded Advance Directives Directive Y: Payers Encounter Date Sequence Insurance Name Policy Number Policy Rojas Covered Member ID Rojas Member ID Guarantor Name 01/23/2023 1 [place] [id number] Marbin Arambula [id number] 25 Sarah Arambula 05/07/2024 1 [place] [id number] Marbin [facility] [id number] 25 [facility] 10/21/2024 1 [place] [id number] Marbin [facility] [id number] 25 [facility] 10/27/2024 1 [place] [id number] Marbin [facility] [id number] 25 [facility] 11/04/2024 1 [place] [id number] Marbin [facility] [id number] 25 [facility] Notes Date Note Type Note Provider Name and Address Organization Details Recorded Time 01/23/2023 text/html Annual GYNReport ed bypatient.Menstrual cycle:Normal menses Urinary symptoms:No hematuria; No incontinence Vulva:No genital lesion Vagina:Normal vaginal discharge Breast:No breast pain; No breast lump; No nipple discharge Sexual complaints:No sexual complaints; No pain during intercourse; Normal libido Menopausal Symptoms:No menopausal symptoms; Normal vaginal lubrication Psychological symptoms:No depression; No anxiety; No PMDD Preventive measures:Encourage self breast examination; Encourage regular exercise; Encourage no tobacco use; Encourage regular mammograms starting age 40; Followed with yearly pap smears; Mammogram performed within the past year Dr. Villag[facility] Pura Buenrostro [facility] [address], [place], [address], [facility] 01/23/2023 10:25:38 05/07/2024 text/html Presents today f or her annual well-woman exam. Denies abnormal vaginal discharge. She is sexually active and denies dyspareunia. She is not using contraception, and she states that she is satisfied with this method. She has not noticed any changes or masses in her breasts. LMP 04/21/24. Periods are Q22-40 days and last 4-5 days. Flow is light to moderate, no intermenstrual spotting. Last mammogram 12/2023, repeat in 1 year. Has small left breast cyst that is stable from prior imaging. Paternal grandmother wtih breast cancer. AMADOU RENEE MD [address], [place], [address], [facility] 05/07/2024 10:55:25 10/21/2024 text/html Patient presents for discussion of weight gain and irregular bleeding. Reports weight gain despite good diet and exercise, especially around the midline. She works out 4-5 days per week, strength and cardio, and eats a low carb diet. No new medications. She also reports 3 months of 2 week long periods and constant bloating/fullness in her lower abdomen. Still having monthly periods, however was previously bleeding for 4-5 days. Reports right sided cramping. Denies intermenstrual bleeding. She had labs done at the time of her PCP visit including CBC, CMP, TSH, and lipid panel which were reviewed today. AMADOU RENEE MD [address], [place], [address], [facility] 10/21/2024 17:51:29 11/04/2024 text/html Patient presents for ultrasound follow up for prolonged bleeding. Patient reports 2 week long periods. Still happening at regular intervals. Rare hot flashes and night sweats. AMADOU RENEE MD [address], [place], [address], [facility] 11/04/2024 23:32:35 OBGyn Episode Ob Episode Information Episode Created Date Number of Fetuses Patient Bloodtype Patient rh Status Prepregnancy Weight lbs Domestic Partner Domestic Partner Phone Father Name Cost Control Supervisor Status 01/24/20 23 1 CLOSED Fetus Data First Name Last Name Admitted to NICU Weight (g) Sex Living Outcome Pediatric Complications Fetus ID Race Codes Race Delivery Type 2976.47 [id number] F Full Term [id number] Vaginal Delivery Luis Calculation Initial Luis Date Initial Exam Date Initial Exam Provider Initial Ultrasound Date Last Menstrual Period Date Ultra Sound Weeks Gestation 0 Eighteen To Twenty Week Luis Update Ultra Sound Date Fundal Height At Umbil Quickening Date Ultra Sound Latest Weeks Gestation Final Luis Confirmed By Final Luis Confirmed Date Final Luis Date Ultra Sound Latest Days Gestation 0 0 Menstrual History Last Menstrual Date Menses Monthly On Bcp Conception Prior Menses Frequency Hcg Plus Date Menarche Onset Age Delivery Information Delivery Date Delivery Type Labor Anesthesia Weeks Gestation Incision Type Labor Labor Length Hrs Delivered By Post Complications Tubal Sterilization Discharge Date Comments 8 40 Garcia Discharge Information Feeding Method Contraceptive Method Maternal HG B and HCT Levels
--- OUTSIDE RECORDS SUMMARY | 2025-02-04 07:33 | XMS_ITS | Clinical Summary ---
Author Organization [facility] Address [address] [place] [address] Care Team Providers Care Animal Chiropractor Name Role Phone Nicol Brice NP Unavailable Nicol Brice NP Primary Care Provider Allergies No known active allergies Medications levothyroxine (SYNTHROID) 175 mcg tablet Take 1 tablet (175 mcg total) by mouth right of way cutter before breakfast 90 tablet 1 4 Active [...] 09/20/2024 Assessment & Plan (09/21/2024 7:19 AM VISUAL LEAD): -Recommended: Healthy diet. Avoiding junk food/fast food. [...] 05/29/2024 Assessment & Plan (09/21/2024 7:17 AM VISUAL LEAD): Stable/ Improved. Blood pressure is adequately controlled [...] 02/04/2024 Assessment & Plan (09/21/2024 7:23 AM VISUAL LEAD): Continues exercising. Diet changes. Assessment & Plan [...] 08/20/2017 Assessment & Plan (09/21/2024 7:17 AM VISUAL LEAD): Euthyroid. Last checked in May. Will give [...] day Assessment & Plan (08/20/2017 2:48 PM VISUAL LEAD): Labs ordered. Awaiting results before re-starting the amour thyroid. Resolved Problems Problem Noted Date Diagnosed Date Resolved Date Encounter to establish care 02/04/2024 09/21/2024 Assessment & Plan (02/04/2024 10:23 AM CDT): Reviewed past medical surgical and family history and ordered labs. Will have her follow-up in 6 months for annual physical. She recently had mammogram done in [facility]. 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 Cubital tunnel syndrome 08/20/201101/21 Immunizations Immunization Administration Dates Next Due Influenza, Quadrivalent, Spl it, Intramuscular 10/06/2019,07/10/2018 Influenza, Quadrivalent, Spl it, Preservative Free, Intramuscular 05/24/2020,07/11/2018,08/20/2017 Influenza, Trivalent, IM (MDV) 06/01/2021 Influenza, Unspecified 06/14/2024,2023(Deferred: Patient Refused),09/23/2023(Deferred: Patient Refused),09/23/2022(Deferred: Patient Refused) Pneumococcal Conjugate Pcv20 09/21/2024 Surgical History Surgery Date Site/Laterality Comments CARPAL TUNNEL RELEASE Left elbow CHOLECYSTECTOMY MYRINGOTOMY W/ TUBES Right 2020 FEMUR FRACTURE SURGERY Right 2021 FRACTURE SURGERY 04/13/22 Medical History Medical History Date Comments Asthma Thyroid disease Neuropathy 2011 Fracture of tibia and fibula 04/14/2022 Chronic bronchitis (HCC) Family History Medical History Relation Name Comments Arthritis Father Yobani Cerebral palsy Father Yobani Hypertension Father Yobani Diabetes Maternal Grandmother Mary Anne Cancer Mother Amelia Non-Hodgkin's Lymphoma Mother Amelia Obesity Mother Amelia Rashes / Skin problems Mother Amelia Breast cancer Paternal Grandmother meme Cancer Paternal Grandmother meme Depression Paternal Grandmother meme Mental illness Paternal Grandmother meme Relation Name Status Comments Father Yobani Alive Maternal Grandmother Mary Anne Mother Amelia Paternal Grandmother meme Social History Tobacco Use Types Packs/Day Years [...] on file Legal Sex Female 12:47 AM VISUAL LEAD Gender Identity Female 07/17/2022 10:43 AM CDT Sexual Orientation Straight 07/17/2022 10 :43 AM CDT Obstetrics History Para Term AB IAB SAB Ectopic Multiple Livin g Live Births 1 1 1 Date Outcome GA Total Labor Labor/2nd/3rd Weight Sex Type Anes PTL Kayleigh A1 A5 Name Clin Term Last Filed Vital Signs Vital Sign Reading Time Taken Comments Blood Pressure 134/86 09/21/2024 7:00 AM VISUAL LEAD Pulse 101 09/21/2024 7:00 AM VISUAL LEAD Temperature 36.8 C (98.3 F) 09/21/2024 7:00 AM VISUAL LEAD Respiratory Rate 16 09/21/2024 7:00 AM VISUAL LEAD Oxygen Saturation 97% 09/21/2024 7:00 AM VISUAL LEAD Inhaled Oxygen Concentration - - Weight 103.9 kg (229 lb 1.6 oz) 09/21/2024 7:00 AM VISUAL LEAD Height 160 cm (5' 3 ) 09/21/2024 7:00 AM VISUAL LEAD Body Mass Index 40.58 09/21/2024 7:00 AM VISUAL LEAD Plan of Treatment Health Maintenance Due Date Last Done Comments Cervical Cancer Screening 1981 Hepatitis C Screening 1981 DTaP/Tdap/Td Vaccine (1 - Tdap) 1992 Varicella Vaccines (1 of 2 - 13+ 2-dose series) 1994 Hepatitis B Screening 1999 Covid-19 Vaccine ( season) 2024 10/20/2021, 05/12/2021, 04/07/2021 Breast Cancer Screening-Mammogram 12/24/2024 12/25/2023, 08/29/2017 Depression Screening 05/29/2025 05/29/2024, 02/04/2024, 09/12/2017, Additional history exists Regular Well Visit/Exam 18-64 09/21/2025 09/21/2024 Influenza Vaccine Completed 06/14/2024, , 05/24/2020, Additional history exists Pneumococcal vaccine <65 Completed 09/21/2024 HPV Vaccines Aged Out No longer eligi ble based on patient's age to complete this topic Medical Devices Implanted Type Area Cooper Apprentice Device Identifier Shelf Expiration Date Model / Serial / Lot [employer]/Rich[employer]/Ort ho [place]-Nail 10mm 33cm Tibia Nail Intramedullary Titanium [id number] - S0 - [id number] Implanted:Qty: 1 on 04/14/2022 by Lucinda Osborne MD at [facility] Nail Right: Tibia [employer]Rich[employer]/O rtho [id number] 11/09/2030 [id number] / 0 / [id number] [employer]/Rich[employer]/Ort ho Dup 5mm 32.5mm Low Profile Internal Hex Femur Screw Bone Trigen [id number] - S0 - [id number] Implanted:Qty: 2 on 04/14/2022 by Lucinda Osborne MD at [facility] Screw Right: Tibia SILVA [employer] NEPHEW/RICHCO/O RTHO Dup [id number] / 0 / 0 [employer]/Rich[employer]/Ort ho 5mm 35mm Low Profile Internal Hex Femur Screw Bone Trigen [id number] - S0 - [id number] Implanted:Qty: 1 on 04/14/2022 by Lucinda Osborne MD at [facility] Screw Right: Tibia [employer]Rich[employer]/O rtho [id number] / 0 / 0 [employer]/Rich[employer]/Ort ho 5mm 37.5mm Low Profile Internal Hex Femur Screw Bone Trigen [id number] - S0 - [id number] Implanted:Qty: 1 on 04/14/2022 by Lucinda Osborne MD at [facility] Screw Right: Tibia [employer]Rich[employer]/O rtho [id number] / 0 / 0 [employer]/Rich[employer]/Ort ho Evos 3.5mm 38mm Self Tap Cortex Screw Bone Sterile [id number] - S0 - [id number] Implanted:Qty: 1 on 04/14/2022 by Lucinda Osborne MD at [facility] Screw Right: Tibia [employer]/O rtho [id number] / 0 / 0 [employer]/Rich[employer]/Ort ho 5mm 57mm Low Profile Internal Hex Femur Screw Bone Trigen [id number] - S0 - [id number] Implanted:Qty: 1 on 04/14/2022 by Lucinda Osborne MD at [facility] Screw Right: Tibia [employer]/O rtho [id number] / 0 / 0 Procedures Procedure Name [...] Most Recently Relevant to Health Maintenance Insurance [facility]PPO Address: [address] [place] [address] [facility] CHOICE PLUS [facility] Advance Directives For more information, please contact: [phone] * Full Code (Latest Code Status on File) Date Activated Date Inactivated Comments 04/14/2022 12:30 PM 04/15/2022 4:55 PM Care Teams Animal Chiropractor Relationship Specialty Start Date End Date Nicol Brice NP PCP - General Family Medicine 05/07/24 Nicol Brice NP Family Medicine 04/07/24
== END 2025-02-04 07:28 | disposition home or self-care (01) ==
LOC: ANHIMG 07:30
PROVIDERS: PCP Nurse Practitioner Family; Visit Provider Nurse Practitioner Family
DX: Z12.31 Encounter for screening mammogram for malignant neoplasm of breast (principal)
CPT/HCPCS: 77063; 77067